=== PATIENT | male | born 1940 | race Caucasian/White ===

== ENCOUNTER 2016-07-21 11:59 | Inpatient (IN) ==
[2016-07-21 12:35] LABS: MANUAL DIFF NEEDED? NO
[2016-07-21 12:55] LABS: HEMATOCRIT 32.3 % (42.0-52.0); HEMOGLOBIN 10.7 g/dL (14.0-18.0); MCH 30.3 PG (27-31); MCHC 33.1 g/dL (33-37); MCV 91.5 FL (81-99); PLT 203 X1000 (130-400); RBC 3.53 XMIL (4.7-6.1)
[2016-07-21 12:56] LABS: BASO% 0.2 % (0.0-0.8); EOS# 0.36 X1000 (0.0-0.7); EOS% 3.5 % (0.0-10.0); IMM GRAN# 0.05 X1000 (0.0-0.04); IMM GRAN% 0.5 % (0.0-0.5); LYMPH# 1.94 X1000 (1.2-3.4); LYMPH% 18.8 % (20.5-51.1); MONO# 1.11 X1000 (0.11-0.59); MONO% 10.8 % (1.7-9.3); MPV 11.7 FL (7.4-10.4); NEUT% 66.2 % (42.2-75.2)
--- NOTE | 2016-07-21 13:07 | Diag Imaging Result Document ---
PROCEDURE NAME: CHEST-2 VIEWS - 07/21/2016 CHEST, 2 VIEWS: FINDINGS: Compared with 07/13/2014 and 05/26/2014. Heart size is normal. There is appearance of symmetrical mild pleural thickening at the bilateral lateral bases. However, the symmetry suggests that this is artifactual related to soft tissue overlap. Otherwise, lungs appear clear. There is no other pleural effusion or pneumothorax identified. There is mild thoracic spondylosis noted. IMPRESSION: Apparent symmetrical mild artifacts from soft tissue overlap at bilateral lateral bases. Otherwise, no evidence of acute disease. No pneumonia. [facility]
--- NOTE | 2016-07-21 13:09 | ED EKG INTERP ---
This chart was entered by Reema Pastor Scribmeghann, acting as scribe for Romeo Haile MD. EKG Interpretation - EKG Time of EKG reading by physician:: 12:15 EKG Read and Signed by:: Romeo Haile EKG Interpretation (*Must complete 3 of following elements*): Abnormal Rate: 58 Rhythm: sinus bradycardia with marked sinus arrhythmia Comments: ST & T wave abnormality, consider lateral ischemia This chart was documented by the indicated scribe, (Reema Pastor, Lit[place]) and accurately reflects the services I performed and decisions made by me, Romeo Haile MD, as attested by the provider's signature.
[2016-07-21 13:14] LABS: AGAP 13; ALKALINE PHOSPHATASE 28 U/L (32-122); BUN 56 mg/dL (8-22); CALCIUM 9.3 mg/dL (8.8-10.2); CHLORIDE 95 mmol/L (98-107); COSMO 285; GOT 28 U/L (10-34); GPT 18 U/L (10-44); POTASSIUM 3.8 mmol/L (3.5-5.1); SODIUM 134 mmol/L (136-145); TCO2 26 mmol/L (25-35); TOTAL PROTEIN 6.6 g/dL (6.3-8.3)
--- NOTE | 2016-07-21 13:37 | EKG Report ---
Test Performed on : 07/21/2016 12:15:18 PM Test Reason : cough Blood Pressure : / mmHG Vent. Rate : 058 BPM Atrial Rate : 058 BPM P-R Int : 174 ms QRS Dur : 106 ms QT Int : 418 ms P-R-T Axes : 048 059 218 degrees QTc Int : 410 ms Sinus bradycardia. with marked sinus arrhythmia. ST \T\ T wave abnormality, consider lateral ischemia Abnormal ECG When compared with ECG of 14-JUL-2014 18:47, ST no longer elevated in Inferior leads T wave inversion no longer evident in Inferior leads T wave inversion more evident in Lateral leads Unconfirmed Result
--- NOTE | 2016-07-21 14:45 | PROVIDER DOCUMENTATION ---
This chart was entered by Reema Pastor Scribe, acting as scribe for Romeo Haile MD. HPI-General Adult - General Chief Complaint: Weakness Stated Complaint: CONGESTION Time Seen by Provider: 07/21/16 13:09 Source: patient, family Allergies/Adverse Reactions: Patient Allergies Allergy/AdvReac Type Severity Reaction Status Date / Time No Known Allergies Allergy Verified 07/13/14 11:16 Home Medications: Home Medication List Medication Instructions Recorded Confirmed Last Taken Type Ondansetron [Zofran] 4 mg PO Q6H PRN PRN #20 tablet 06/29/14 07/14/14 Unknown Rx Metformin [Glucophage] 1,000 mg PO BID CC 07/13/14 07/14/14 Unknown History Aspirin [Aspirin EC] 81 mg PO DAILY 07/25/14 07/25/14 07/25/14 07:00 History Carvedilol [Coreg] 1 tab PO BID #0 07/25/14 07/14/14 Unknown Rx Docusate Sodium [Colace] 100 mg PO BID 07/25/14 07/25/14 07/25/14 07:00 History Donepezil [Aricept] 5 mg PO HS #0 tablet 07/25/14 Unknown Rx Gabapentin 300 mg PO TID #0 07/25/14 07/14/14 Unknown Rx Hydrochlorothiazide 25 mg PO DAILY #0 07/25/14 07/14/14 Unknown Rx Multivitamin [Flintstones] 1 each PO DAILY 07/25/14 07/25/14 07/25/14 07:00 History Pravastatin Sodium 20 mg PO DAILY #0 07/25/14 07/14/14 Unknown Rx Sertraline HCl 50 mg PO DAILY #0 tablet 07/25/14 Unknown Rx Terazosin [Hytrin] 5 mg PO QHS 07/25/14 07/25/14 07/24/14 19:00 History Trazodone [Desyrel] 25 mg PO HS PRN PRN #0 tablet 07/25/14 Unknown Rx - History of Present Illness -Gen Adult Nature of Presenting Problems: 76 year old male presents to the ER from urgent care clinic for O2 SAT of 90%. Pt states he has had a cold for the last two days. SOB, cough and congestion. Pt also experiencing edema in bilateral lower extremities. Onset/Duration: reports: 2 days ago Timing: reports: still present Associated Symptoms: reports: cough, sinus congestion/drainage, weakness Review of Systems - Adult - REVIEW OF SYSTEMS - ADULT Constitutional: denies: chills, fever Eyes: reports: no symptoms reported Ears, Nose, Mouth & Throat: reports: ear pain, sinus problem Cardiovascular: reports: no symptoms reported Respiratory: reports: cough, shortness of breath Gastrointestinal: reports: no symptoms reported Genitourinary: reports: no symptoms reported Musculoskeletal: reports: no symptoms reported Integumentary: reports: no symptoms reported Neurological: reports: no symptoms reported Psychiatric: reports: no symptoms reported Endocrine: reports: no symptoms reported Hematologic/Lymphatic: reports: no symptoms reported Allergic/Immunologic: reports: no symptoms reported All Other Systems: Reviewed and Negative Past History - Adult - PAST MEDICAL HISTORY-ADULT Review of Records: reports: Old Records Reviewed, Nursing Assessment Review, Medications Reviewed Major Childhood Illnesses: reports: denies history Cardiovascular: reports: HTN, hyperlipidemia Respiratory: reports: denies history Gastrointestinal: reports: denies history Obstetrical/Gynecological: reports: denies history Genitourinary: reports: cancer (prostate) Musculoskeletal: reports: denies history Neurological: reports: denies history Psychiatric: reports: other (dementia) Endocrine/Immune: reports: Diabetes Other Conditions: reports: denies history - PRIOR SURGERIES/PROCEDURES Surgical/Procedure History: reports: cardiac stent, hernia repair - IMMUNIZATION STATUS Childhood Immunizations: See Nurse Assessment Flu Vaccine: See Nurse Assessment - FAMILY HISTORY Family History: reviewed, not pertinent Physical Exam-General - CONSTITUTIONAL General Appearance: alert, no apparent distress - EYES Eyes: PERRL/EOMI, pink conjunctivae - HEAD, EARS, NOSE, MOUTH & THROAT HENMT: pharyngeal erythema, tonsillar exudate - NECK Neck: non-tender, supple - RESPIRATORY Respiratory: no respiratory distress, decreased breath sounds - CARDIOVASCULAR Cardiovascular: normal peripheral pulses, regular rate, rhythm - MUSCULOSKELETAL Back Exam: no CVA tenderness, no vertebral tenderness Extremity: non-tender, normal inspection - SKIN Integumentary: normal color, swelling (bilateral lower extremities) - NEUROLOGIC Neurologic: grossly normal, no motor/sensory deficits - PSYCHIATRIC Psych/Mental Status: normal mood/affect, normal thought content, normal thought process, oriented x 3 Progress - PLAN OF CARE/RESULTS Progress/Plan/Lab Results: Vital Signs - 8 hr 07/21/16 12:09 Temperature 97.7 F Pulse Rate 84 Respiratory Rate 20 Blood Pressure 88/45 O2 Sat by Pulse Oximetry 94 L Laboratory Results - last 24 hr 07/21/16 07/21/16 07/21/16 12:25 12:25 12:25 WBC 10.31 RBC 3.53 L Hgb 10.7 L Hct 32.3 L MCV 91.5 MCH 30.3 MCHC 33.1 RDW Std Deviation 12.3 Plt Count 203 MPV 11.7 H Immature Gran % (Auto) 0.5 Neut % (Auto) 66.2 Lymph % (Auto) 18.8 L Richardson % (Auto) 10.8 H Eos % (Auto) 3.5 Baso % (Auto) 0.2 Immature Gran # (Auto) 0.05 H Neut # (Auto) 6.83 H Lymph # (Auto) 1.94 Richardson # (Auto) 1.11 H Eos # (Auto) 0.36 Baso # (Auto) 0.02 Sodium 134 L Potassium 3.8 Chloride 95 L Carbon Dioxide 26 Anion Gap 13 BUN 56 H Creatinine 2.4 H BUN/Creatinine Ratio 23 Glucose 127 H Calculated Osmolality 285 Calcium 9.3 Total Bilirubin 0.50 AST 28 ALT 18 Alkaline Phosphatase 28 L Total Protein 6.6 Albumin 4.0 Globulin 3.0 Albumin/Globulin Ratio 2.0 Plasma Lactate 2.2 Orders Category Date Time Status Saline Loc NOW Care 07/21/16 12:15 Completed CHEST-2 VIEWS [RAD] Stat Exams 07/21/16 12:15 Draft BLOOD CULTURE [BLDCUL] Stat Lab 07/21/16 12:15 Ordered CBC WITH DIFF [HEME] Stat Lab 07/21/16 12:25 Completed COMPREHENSIVE METABOLIC PANEL [CHEM] Stat Lab 07/21/16 12:25 Completed LACTATE, PLASMA [CHEM] Stat Lab 07/21/16 12:25 Completed Pulse Oximetry Stat Oth 07/21/16 12:15 Active Result Diagrams: 07/21/16 12:25 07/21/16 12:25 - XRAY 1 XRAY Study: Chest Impression: Normal XRAY Interpretation: no evidence of acute disease, no pneumonia - CONSULTS/PCP/HOSPITALIST Notification #1 *Consult/PCP/Hospitalist*: Spoke with Dr. Gan Time Discussed: 14:05 Reason/Comments: Agreed to Admission Consult Disposition: Admit Departure - Departure Time of Disposition Decision: 14:44 DIAGNOSIS: Dehydration, moderate Disposition: ADMITTED INPATIENT 09 Certified Medical Emergency: Emergent Condition: Stable Referrals and Follow-Ups: David Bill Jr, MD [Primary Care Provider] - This chart was documented by the indicated scribe, (Reema Pastor, Scribe) and accurately reflects the services I performed and decisions made by me, Romeo Haile MD, as attested by the provider's signature.
[2016-07-21] MEDS ORDERED: NS 1,000 ML IV ONE (14:46)
[2016-07-21] MEDS ORDERED: DESYREL PO PRN (16:54)
[2016-07-21] MEDS ORDERED: DUONEB (A & A) INH PRN (16:55)
[2016-07-21] MEDS ORDERED: ZOFRAN IV PRN (16:55)
[2016-07-21] MEDS ORDERED: ROBITUSSIN-AC PO PRN (16:57)
--- NOTE | 2016-07-21 17:32 | HISTORY AND PHYSICAL ---
PRIMARY CARE PHYSICIAN: Dr. David Bill. CHIEF COMPLAINT: Cough. HISTORY OF PRESENT ILLNESS: This is a 76-year-old male with a history of diabetes mellitus, CAD, status post stents, hypertension, who presented to the emergency room complaining of about a week of sinus drainage, sore throat and cough. But he states over the last 3 days he has had a persistent cough that increases greatly when he leans back due to sinus drainage. He has had no appetite. He has continued to take his hydrochlorothiazide as well as other medications with very little p.o. intake. He denies any chest pain or palpitations, PND, orthopnea. Chest x-ray revealed no acute disease, no pneumonia. In the emergency room he was given IV hydration and admitted for further evaluation and treatment. PAST MEDICAL HISTORY: 1. Coronary artery disease status post stents approximately 8 years ago. 2. Hypertension. 3. Diabetes mellitus. 4. Prostate cancer. 5. Hyperlipidemia. PAST SURGICAL HISTORY: Hernia repair. SOCIAL HISTORY: He has occasional social alcohol. He quit smoking in 1967. He denies illicit drug use. ALLERGIES: No known drug allergies. HOME MEDICATIONS: Flomax 0.4 daily, Claritin 10 as needed, Levemir 60 units at bedtime, Trilipix 135 daily, Coreg 25 b.i.d., Avapro 300 daily, Amaryl 4 b.i.d., Bumex 1 daily, Casodex 50 daily, Norvasc 5 daily, Humalog 50 units before meals, gabapentin 300 daily, Glucophage 1000 b.i.d, hydrochlorothiazide 25 daily, pravastatin 20 daily, trazodone 25 at bedtime, Zoloft 50 daily. REVIEW OF SYSTEMS: A 14 point review of systems discussed with patient with pertinent positives stated in HPI. He denies chest pain, palpitations, syncope, dizziness, productive cough, PND orthopnea, fever, chills, recent weight loss, weight gain, nausea, vomiting, diarrhea, constipation, black or bloody vomitus, black or bloody stools, hematuria, dysuria. PHYSICAL EXAMINATION: GENERAL: This is a 76-year-old male, who is sitting up in the bed, in no distress. VITAL SIGNS: Blood pressure is 133/55, with heart rate of 58, respirations are 20, temperature is 97.4 degrees oral, with oxygen saturations of 98%-99% on 2 L nasal cannula. HEENT: Head is normocephalic, atraumatic. Pupils equal, round, react to light. EOMs are intact. Sclerae anicteric. Mucous membranes are dry. NECK: Supple with trachea midline. CARDIOVASCULAR: Regular rate and rhythm. S1, S2 appreciated. PULMONARY: Breath sounds with wheezes scattered throughout, rhonchi that do somewhat clear to cough. Chest rises and falls symmetrically. No increased work of breathing noted. BACK: No CVAT. No spine tenderness. GASTROINTESTINAL: Soft, nontender, nondistended with bowel sounds in all 4 quadrants. MUSCULOSKELETAL: Good range of motion of joints. NEUROLOGIC: He is alert and oriented x3. EXTREMITIES: No clubbing or cyanosis. He does have 2 to 3+ edema, pitting edema to just below the knees down. He states this is chronic. Pulses are palpable x4. Calves are nontender. DIAGNOSTICS: WBC is 10.31, with hemoglobin 10.7, hematocrit 32.3, and platelets of 203,000. Sodium is 134, potassium 3.8, BUN 56, creatinine 2.4, with a glucose of 127. Chest x-ray reveals no pneumonia or no acute processes. ASSESSMENT AND PLAN: 1. Acute kidney injury. This is most likely secondary to dehydration and continued medications. We will hold any renal toxic medications, hold diuretics of course, give gentle hydration and trend labs in the morning. 2. Dehydration. This patient states he has had very little p.o. intake in the last 2-3 days due to feeling bad, but he has continued to take hydrochlorothiazide and Bumex. We will rehydrate and follow. 3. Cough. The patient feels this is from sinus drainage as when he lies down he has increased drainage and increased cough, although he is wheezing. Blood cultures have been obtained. Due to his renal status we will give Rocephin 1 g daily once cultures return if needed. Antibiotics can be dosed appropriately to the results. 4. Hypertension. We will repeat his medications and continue as appropriate. 5. Diabetes type 2. We will hold his oral anti diabetics as well as right now his scheduled insulins as he has not been eating. We will give sliding scale per pattern blood glucose and we can reassess in the morning as his appetite increases and he does increase his p.o. intake. 6. History of prostate cancer. Aware. 7. Coronary artery disease. He states he is status post PCI about 8 years ago. He has had no cardiology followup since his visit just after stents were placed. He denies any chest pain or palpitations. He will be placed on telemetry. 8. DVT prophylaxis. We will hold off on Lovenox due to his renal function. We will use SCDs and will re-evaluate in the morning. 9. Gastrointestinal prophylaxis. We will use Protonix. Further treatments pending hospital course. Dictated by MG Nguyen for Ta Brady MD cc: MG Nguyen MD
[2016-07-21] MEDS: ROCEPHIN 1 GM/NS 1 GM/50 ML IVPB IV SCH (17:37)
[2016-07-21] MEDS: SOLU-MEDROL IV SCH (17:37)
[2016-07-21] MEDS: DUONEB (A & A) INH SCH ×2 (19:28→23:02)
[2016-07-21] MEDS: COLACE PO SCH (21:23)
[2016-07-21] MEDS: COREG PO SCH (21:24)
[2016-07-21] MEDS: HUMALOG DOSE (PARKWAY) SUBQ SCH (21:56)
[2016-07-22] MEDS: SOLU-MEDROL IV SCH ×3 (01:22→18:42)
[2016-07-22] MEDS: DUONEB (A & A) INH SCH ×5 (03:14→19:33)
[2016-07-22 05:50] LABS: HEMATOCRIT 30.8 % (42.0-52.0); HEMOGLOBIN 10.3 g/dL (14.0-18.0); MCH 30.5 PG (27-31); MCHC 33.4 g/dL (33-37); MCV 91.1 FL (81-99); RBC 3.38 XMIL (4.7-6.1)
[2016-07-22 05:51] LABS: MPV 11.5 FL (7.4-10.4)
[2016-07-22 06:08] LABS: AGAP 14; ALBUMIN 3.8 g/dL (3.5-5.0); ALKALINE PHOSPHATASE 31 U/L (32-122); BUN 51 mg/dL (8-22); CALCIUM 8.9 mg/dL (8.8-10.2); CHLORIDE 93 mmol/L (98-107); COSMO 297; GOT 18 U/L (10-34); GPT 15 U/L (10-44); POTASSIUM 4.2 mmol/L (3.5-5.1); SODIUM 132 mmol/L (136-145); TCO2 25 mmol/L (25-35); TOTAL PROTEIN 6.2 g/dL (6.3-8.3)
[2016-07-22] MEDS: HUMALOG DOSE (PARKWAY) SUBQ SCH ×7 (06:10→20:56)
[2016-07-22] MEDS ORDERED: IMODIUM PO PRN (06:49)
[2016-07-22] MEDS ORDERED: CLARITIN PO PRN (06:49)
[2016-07-22] MEDS ORDERED: LANTUS INSULIN (PARKWAY) SUBQ ONE ×2 (06:50→08:30)
[2016-07-22] MEDS ORDERED: HUMALOG (PARKWAY) SUBQ SCH (07:00)
[2016-07-22] MEDS ORDERED: HUMALOG DOSE (PARKWAY) SUBQ SCH (08:17)
--- NOTE | 2016-07-22 08:32 | PROGRESS NOTE ---
DATE: 07/22/2016 SUBJECTIVE: The patient notes he is feeling a little bit better. His blood sugars are elevated, but other than that states he is feeling back and closer to his baseline. PHYSICAL EXAMINATION: Vital Signs: Temperature 97, pulse 49-68, respiratory rate 18, blood pressure 125/46. General: Patient well developed, well nourished. He is currently in no real respiratory distress. He is awake, alert. Neck: Supple. Cardiovascular: Regular rate. Chest: Relatively clear. Abdomen: Soft. Extremities: Moves all extremities. Neurologic: No focal changes. Skin: Warm and dry. No rashes. LABS: Serum creatinine 2.0. Glucose 449, potassium 132. Hemoglobin and hematocrit 10 and 30. ASSESSMENT: 1. Anemia of chronic disease, stable. 2. Acute renal failure. His last creatinine on record is 0.5 from 2014. Creatinine is slowly improving. Will continue IV fluids. 3. Diabetes with hyperglycemia. We will restart his home medications. PLAN: We will check a renal ultrasound today. We will continue to hold his Bumex and hydrochlorothiazide. Will continue IV fluids. Recheck his labs in the a.m. Hopefully home in 1- 2 days. cc: aT Brady MD
[2016-07-22] MEDS ORDERED: PRAVACHOL PO SCH (09:00)
[2016-07-22] MEDS: AMARYL PO SCH ×2 (09:21→20:52)
[2016-07-22] MEDS: COREG PO SCH ×2 (09:21→20:53)
[2016-07-22] MEDS: GLUCOPHAGE PO SCH ×2 (09:21→18:43)
[2016-07-22] MEDS: COLACE PO SCH ×2 (09:21→20:53)
[2016-07-22] MEDS: FLOMAX PO SCH (09:21)
[2016-07-22] MEDS: TRICOR PO SCH (09:22)
[2016-07-22] MEDS: ZOLOFT PO SCH (09:22)
[2016-07-22] MEDS: TYLENOL PO SCH ×3 (09:22→20:52)
[2016-07-22] MEDS: NEURONTIN PO SCH (09:22)
[2016-07-22] MEDS: NORVASC PO SCH (09:22)
[2016-07-22] MEDS: AVAPRO PO SCH (09:23)
--- NOTE | 2016-07-22 10:27 | Diag Imaging Result Document ---
PROCEDURE NAME: US RENAL 2 (RETROPER) COMPLETE - 07/22/2016 RENAL ULTRASOUND: FINDINGS: The study is somewhat suboptimal due to the patient's body habitus, but there is no evidence of hydronephrosis or mass in the kidneys. The right kidney is 9.8 x 5.5 x 5.7 cm. The left is 10 x 5.1 x 5.2 cm. The kidneys are normal in echogenicity. The urinary bladder is not distended. IMPRESSION: No evidence of obstructive uropathy or other acute renal abnormality.
[2016-07-22] MEDS: ROCEPHIN 1 GM/NS 1 GM/50 ML IVPB IV SCH (18:42)
[2016-07-22] MEDS: NS 1,000 ML IV SCH ×2 (18:52→21:25)
[2016-07-22] MEDS: CASODEX PO SCH (18:52)
[2016-07-22] MEDS: FLINTSTONES COMPLETE PO SCH (18:52)
[2016-07-22] MEDS ORDERED: LEVEMIR INSULIN *HA SUBQ SCH (21:00)
[2016-07-23] MEDS: SOLU-MEDROL IV SCH ×2 (00:53→08:41)
[2016-07-23] MEDS: TYLENOL PO SCH ×3 (01:05→13:50)
[2016-07-23] MEDS: DUONEB (A & A) INH SCH ×4 (01:18→14:32)
[2016-07-23 06:02] LABS: HEMATOCRIT 29.3 % (42.0-52.0); HEMOGLOBIN 9.5 g/dL (14.0-18.0); MCHC 32.4 g/dL (33-37); MCV 92.4 FL (81-99); MPV 11.7 FL (7.4-10.4); RBC 3.17 XMIL (4.7-6.1)
[2016-07-23] MEDS: HUMALOG DOSE (PARKWAY) SUBQ SCH ×5 (06:46→13:16)
[2016-07-23 07:00] LABS: ALBUMIN 3.7 g/dL (3.5-5.0); CALCIUM 8.9 mg/dL (8.8-10.2); POTASSIUM 4.5 mmol/L (3.5-5.1); TOTAL BILIRUBIN 0.2 mg/dL (0.20-1.00); TOTAL PROTEIN 5.7 g/dL (6.3-8.3)
[2016-07-23] MEDS ORDERED: AMARYL PO SCH (08:00)
[2016-07-23] MEDS: ZOLOFT PO SCH (08:42)
[2016-07-23] MEDS: GLUCOPHAGE PO SCH (08:42)
[2016-07-23] MEDS: CASODEX PO SCH (08:43)
[2016-07-23] MEDS: TRICOR PO SCH (08:43)
[2016-07-23] MEDS: NORVASC PO SCH (08:43)
[2016-07-23] MEDS: NEURONTIN PO SCH (08:44)
[2016-07-23] MEDS: COREG PO SCH (08:44)
[2016-07-23] MEDS: FLOMAX PO SCH (08:44)
[2016-07-23] MEDS: FLINTSTONES COMPLETE PO SCH (08:44)
[2016-07-23] MEDS: COLACE PO SCH (08:46)
[2016-07-23] MEDS: AVAPRO PO SCH (08:46)
[2016-07-23] MEDS: NS 1,000 ML IV SCH (13:17)
[2016-07-23 13:49] LABS: URINE SOURCE VOIDED
[2016-07-23 14:05] LABS: BILIRUBIN URINE NEGATIVE (NEGATIVE); BLOOD URINE NEGATIVE (NEGATIVE); CLARITY CLEAR (CLEAR); COLOR YELLOW; LEUKOCYTES URINE NEGATIVE (NEGATIVE); NITRITE URINE NEGATIVE (NEGATIVE); PROTEIN URINE TRACE mg/dL (NEGATIVE); URINE MICROSCOPIC NEEDED? YES; UROBILINOGEN URINE NORMAL
[2016-07-23 15:16] LABS: URINE EPITHELIAL CELLS <10 /HPF (<10); URINE RBC <10 /HPF (<10); URINE WBC <10 /HPF (<10)
[2016-07-23 15:27] VITALS: BP 121/52
[2016-07-23] MEDS ORDERED: SOLU-MEDROL IV SCH (17:00)
[2016-07-23] MEDS ORDERED: PRAVACHOL PO SCH (21:00)
--- NOTE | 2016-07-24 13:00 | DISCHARGE SUMMARY ---
ADMISSION DATE: 07/21/2016 DISCHARGE DATE: 07/23/2016 DIAGNOSES: 1. Acute kidney injury most likely secondary to dehydration and continued use of medications. This is improving. 2. Dehydration resolved. 3. Anemia of chronic disease. Stable. 4. Diabetes mellitus type 2 with hyperglycemia improving. 5. Coronary artery disease. Aware. 6. History of prostate cancer. DIAGNOSTICS: 07/21/2016: Chest x-ray revealed no pneumonia and no evidence of acute disease. 07/22/2016: Renal ultrasound revealed no evidence of obstructive uropathy or other acute renal abnormality. MICROBIOLOGY: Blood cultures x2 revealed no growth after 48 hours. HOSPITAL COURSE: Mr. Delaney presented to the emergency room complaining of about a week of persistent sinus drainage,. Sore throat and cough over the 3 days prior to coming to the emergency room. He stated that secretions and drainage had increased. Any time he would lie down, he would have a persistent cough. He had no appetite due to this and he states he had very little oral intake. Despite this, he continued to take his home medications including Bumex, Glucophage, hydrochlorothiazide and Avapro. He was found to have a BUN of 56 and a creatinine of 2.4. This has decreased to a creatinine down to 2 on discharge. We did trend CBCs. His hemoglobin and hematocrit stayed between 9.5-10.7 to 29.3 and 32.3 respectively. He was placed on pattern blood glucose with sliding scale insulin. We held his Bumex, hydrochlorothiazide, Amaryl and Glucophage during the hospitalization. We did institute steroids to taper along with DuoNeb treatments of which he did tolerate well. He clinically improved. PHYSICAL EXAMINATION: Cardiovascular: Regular rate and rhythm. S1, S2 appreciated. Pulmonary: Breath sounds are clear. No increased work of breathing noted. Gastrointestinal: Abdomen is soft, nontender, nondistended. Bowel sounds in all 4 quadrants. Extremities: No clubbing, cyanosis, or edema. Calves nontender. Pulses are palpable x4. DISCHARGE VITAL SIGNS: Blood pressure is 121/52 with a heart rate of respirations are 16, temperature 96.8 degrees oral with room air saturations of 96-98%. DISCHARGE ACTIVITY: As tolerated. DISCHARGE MEDICATIONS: 1. Flomax 0.4 daily, Claritin 10 daily. Imodium 2 mg p.o. p.r.n., Levemir 60 units subcutaneous at bedtime, Trilipix 135 daily, Coreg 25 b.i.d., Avapro 300 daily, Casodex 50 daily, Norvasc 5 daily, Humalog 50 units subcutaneous before meals. 2. Colace 100 mg b.i.d., gabapentin 300 daily, pravastatin 20 daily. Flintstones vitamin daily, trazodone 25 at bedtime p.r.n.. Zoloft 50 daily. 3. Prednisone taper 40 mg twice a day for 3 days, 40 mg daily for 3 days, 20 mg daily for 3 days, 10 mg daily for 3 days, then discontinue. FOLLOWUP: Dr. David Bill, his primary care physician on August 01 at 2:30. At this time, it will be discussed restarting Glucophage, hydrochlorothiazide, Bumex and Amaryl. He will also need a BMP. An order for BMP to be drawn on July 25 with results to be called to Dr. Bill regarding his BUN and creatinine was faxed to [facility] as well as sent to the [facility] with his discharge papers. DISCHARGE INSTRUCTIONS: He was instructed to call Dr. Bill to be seen sooner for any recurring symptoms or questions or concerns that he may have. Dictated by MG Nguyen for Ta Brady MD cc: MG Nguyen MD Roger H. Moss Jr, MD
== END 2016-07-23 16:59 | disposition home or self-care (01) ==
LOC: P.ED 11:59 → P.MEDSURG 11:59 → OBSVTOIN 15:26
PROVIDERS: ATTEND Family Medicine

== ENCOUNTER 2018-07-28 19:16 | Inpatient (IN) ==
--- NOTE | 2018-07-28 20:04 | Diag Imaging Result Doc PS360 ---
EXAM: CHEST-2 VIEWS HISTORY: cough congestion fever TECHNIQUE: Chest two views COMPARISON: 12/05/2017 FINDINGS: The lungs are well expanded. The heart is not enlarged. The vessels are not distended. There are no infiltrates. No pleural effusions. IMPRESSION: No pneumonia Electronically signed by Carlos Alberto Walker 07/28/2018 8:02 PM
[2018-07-28 20:11] LABS: INFLUENZA A NEGATIVE (NEGATIVE); INFLUENZA B NEGATIVE (NEGATIVE)
[2018-07-28 20:55] LABS: BASO# 0.02 X1000 (0.0-0.2); BASO% 0.2 % (0.0-0.8); EOS# 0.22 X1000 (0.0-0.7); EOS% 2.2 % (0.0-10.0); HEMATOCRIT 38.4 % (42.0-52.0); HEMOGLOBIN 13.1 g/dL (14.0-18.0); IMM GRAN# 0.06 X1000 (0.0-0.04); IMM GRAN% 0.6 % (0.0-0.5); LYMPH# 1.15 X1000 (1.2-3.4); LYMPH% 11.7 % (20.5-51.1); MCH 31.2 PG (27-31); MCHC 34.1 g/dL (33-37); MCV 91.4 FL (81-99); MONO# 0.94 X1000 (0.11-0.59); MONO% 9.6 % (1.7-9.3); NEUT# 7.44 X1000 (1.4-6.5); NEUT% 75.7 % (42.2-75.2); PLT 191 X1000 (130-400); RDW 12.1 % (11.5-14.5); WBC 9.83 X1000 (4.8-10.8)
[2018-07-28 22:15] LABS: INR 0.96; PROTIME 13.3 Seconds (11.0-16.0)
[2018-07-28 22:16] LABS: PTT 28.7 Seconds (22.3-41.8)
[2018-07-28 22:22] LABS: ALBUMIN 4.1 g/dL (3.5-5.0); CALCIUM 8.7 mg/dL (8.8-10.2); CREATININE 1.5 mg/dL (0.7-1.2); POTASSIUM 4.2 mmol/L (3.5-5.1); TOTAL BILIRUBIN 0.5 mg/dL (0.20-1.00); TOTAL PROTEIN 6.7 g/dL (6.3-8.3)
[2018-07-28] MEDS ORDERED: NS 1,000 ML IV ONE (22:37)
[2018-07-28 23:11] LABS: BILIRUBIN URINE NEGATIVE (NEGATIVE); BLOOD URINE NEGATIVE (NEGATIVE); CLARITY CLEAR (CLEAR); COLOR YELLOW; KETONE URINE NEGATIVE (NEGATIVE); LEUKOCYTES URINE NEGATIVE (NEGATIVE); NITRITE URINE NEGATIVE (NEGATIVE); PROTEIN URINE NEGATIVE (NEGATIVE); SP GRAVITY URINE 1.015; UROBILINOGEN URINE NORMAL
[2018-07-28 23:15] LABS: URINE BACTERIA 2+ /HFP; URINE EPITHELIAL CELLS <10 /HPF (<10); URINE WBC NS /HPF (<10)
[2018-07-28 23:16] LABS: URINE SOURCE CATH
[2018-07-28] MEDS ORDERED: ZOSYN 3.375 GM in NS 50 ML IV ONE (23:30)
[2018-07-28] MEDS ORDERED: VANCOMYCIN 1 GM/NS 1 GM/250 ML IVPB IV ONE (23:30)
--- NOTE | 2018-07-29 00:12 | PROVIDER DOCUMENTATION ---
This chart was entered by Ruma Miranda Scribe, acting as scribe for Theo Monahan MD. HPI-General Adult - General Chief Complaint: High Blood Sugar Stated Complaint: HYPERGLYCEMIA Time Seen by Provider: 07/28/18 21:09 Source: patient, family Unable to obtain history due to:: other (poor historian-information from brother at bedside) Allergies/Adverse Reactions: Patient Allergies Allergy/AdvReac Type Severity Reaction Status Date / Time No Known Allergies Allergy Unverified 07/28/18 22:54 Home Medications: Home Medication List Medication Instructions Recorded Confirmed Last Taken Type Multivitamin [Flintstones] 1 each PO DAILY 07/25/14 07/28/18 12/04/17 09:00 History Amlodipine Besylate [Norvasc] 5 mg PO DAILY 07/21/16 07/28/18 12/04/17 09:00 History Bicalutamide [Casodex] 50 mg PO DAILY 07/21/16 07/28/18 12/04/17 09:00 History Cyanocobalamin (Vitamin B-12) 1,000 mcg IJ DIRECTED 02/26/17 07/28/18 Unknown History [Cyanocobalamin Injection] Docusate Sodium [Colace] 100 mg PO BID PRN PRN 02/26/17 07/28/18 Unknown History Fenofibric Acid [Fibricor] 135 mg PO DAILY 02/26/17 07/28/18 12/04/17 09:00 History Gabapentin 300 mg PO DAILY 02/26/17 07/28/18 Unknown History Insulin Detemir [Levemir Flextouch] 60 unit SQ QHS 02/26/17 07/28/18 Unknown History Irbesartan 300 mg PO DAILY 02/26/17 07/28/18 Unknown History PRAVAstatin [Pravachol] 20 mg PO DAILY 02/26/17 07/28/18 Unknown History Sertraline HCl 50 mg PO DAILY 02/26/17 07/28/18 Unknown History Sitagliptin [Januvia] 50 mg PO DAILY 02/26/17 07/28/18 12/04/17 09:00 History Tamsulosin [Flomax] 0.4 mg PO DAILY 02/26/17 07/28/18 Unknown History Insulin Aspart [Novolog Flexpen] 25 - 50 unit SQ DIRECTED #0 12/06/17 0 07/28/18 Unknown Rx Insulin Detemir [Levemir] 60 unit SUBQ Q insuln.pen 12/06/17 07/28/18 Unknown Rx - History of Present Illness -Gen Adult Nature of Presenting Problems: pt is a 78 yr old male presenting via EMS with complaint of weakness, cough, con gestion, fever worsening x 1 week, care facility reports pt unable to walk this evening due to weakness. pt also hyperglycemic. pt poor historian Onset/Duration: reports: 1 week ago Timing: reports: getting worse Context/Activities at Onset: reports: light activity Modifying Factors: improves with: nothing Associated Symptoms: reports: cough, fever/chills, sinus congestion/drainage, weakness, trouble walking Similar Symptoms Previously?: No Recently seen or treated by another doctor?: No - Diabetes Related Context Context: reports: high blood sugar Review of Systems - Adult - REVIEW OF SYSTEMS - ADULT ROS:: limited per condition (information from brother, pt denies complaints) Constitutional: reports: fever, fatique Eyes: reports: no symptoms reported Ears, Nose, Mouth & Throat: reports: no symptoms reported Cardiovascular: reports: no symptoms reported Respiratory: reports: cough Gastrointestinal: denies: diarrhea, vomiting Genitourinary: reports: no symptoms reported Musculoskeletal: reports: no symptoms reported Integumentary: reports: no symptoms reported Neurological: reports: loss of balance Psychiatric: reports: no symptoms reported Endocrine: reports: no symptoms reported Hematologic/Lymphatic: reports: no symptoms reported Allergic/Immunologic: reports: no symptoms reported All Other Systems: Reviewed and Negative Past History - Adult - PAST MEDICAL HISTORY-ADULT Review of Records: reports: Old Records Reviewed, Nursing Assessment Review, Medications Reviewed, Social history reviewed & non-contributory. Major Childhood Illnesses: reports: denies history Cardiovascular: reports: HTN, hyperlipidemia, [place] Respiratory: reports: denies history Gastrointestinal: reports: denies history Obstetrical/Gynecological: reports: denies history Genitourinary: reports: denies history Musculoskeletal: reports: denies history Neurological: reports: denies history Psychiatric: reports: denies history Endocrine/Immune: reports: Diabetes Other Conditions: reports: denies history - PRIOR SURGERIES/PROCEDURES Surgical/Procedure History: reports: reviewed, not pertinent - IMMUNIZATION STATUS Childhood Immunizations: See Nurse Assessment Flu Vaccine: See Nurse Assessment - FAMILY HISTORY Family History: reviewed, not pertinent - SOCIAL HISTORY Smoking: denies Substance Use: denies Living Situation: care facility Physical Exam-General - PHYSICAL EXAM-ADULT Initial Vital Signs Reviewed: Yes - CONSTITUTIONAL General Appearance: alert, no apparent distress - EYES Eyes: PERRL/EOMI - HEAD, EARS, NOSE, MOUTH & THROAT HENMT: normocephalic/atraumatic, moist mucous membranes, normal ENT inspection - NECK Neck: non-tender, full range of motion, supple, normal inspection - RESPIRATORY Respiratory: chest non-tender, lungs clear, normal breath sounds - CARDIOVASCULAR Cardiovascular: normal peripheral pulses, regular rate, rhythm, no edema - GASTROINTESTINAL (ABDOMEN) Abdominal Exam: normal bowel sounds, non tender, soft - LYMPHATIC Lymphatic: no adenopathy - MUSCULOSKELETAL Back Exam: normal inspection, no CVA tenderness, no vertebral tenderness Extremity: normal range of motion, non-tender, normal gait, normal inspection - SKIN Integumentary: normal color, normal turgor, warm/dry - NEUROLOGIC Neurologic: grossly normal, no motor/sensory deficits - PSYCHIATRIC Psych/Mental Status: other (confused) Progress - PLAN OF CARE/RESULTS Progress/Plan/Lab Results: Vital Signs - 8 hr 07/28/18 19:17 07/28/18 21:26 Temperature 100.1 F H 99.4 F Pulse Rate 83 79 Respiratory Rate 18 23 Blood Pressure 137/69 154/61 O2 Sat by Pulse Oximetry 96 95 Laboratory Results - last 24 hr 07/28/18 07/28/18 07/28/18 19:20 19:30 20:35 WBC 9.83 RBC 4.20 L Hgb 13.1 L Hct 38.4 L MCV 91.4 MCH 31.2 H MCHC 34.1 RDW Std Deviation 12.1 Plt Count 191 MPV 11.0 H Immature Gran % (Auto) 0.6 H Neut % (Auto) 75.7 H Lymph % (Auto) 11.7 L [place] % (Auto) 9.6 H Eos % (Auto) 2.2 Baso % (Auto) 0.2 Immature Gran # (Auto) 0.06 H Neut # (Auto) 7.44 H Lymph # (Auto) 1.15 L [place] # (Auto) 0.94 H Eos # (Auto) 0.22 Baso # (Auto) 0.02 POC Glucose 387 H D Influenza A (Rapid) NEGATIVE Influenza B (Rapid) NEGATIVE Orders Category Date Time Status Cardiac Monitoring DIRECTED Care 07/28/18 21:22 Active FSBS [Finger Stick Blood Sugar (ED)] DIRECTED Care 07/28/18 19:29 Active IV Insertion ORDERED Care 07/28/18 21:22 Active Notify MD of + Sepsis Screen NOW Care 07/28/18 21:22 Active Notify Physician As Ordered Care 07/28/18 21:22 Active CHEST-2 VIEWS [RAD] Stat Exams 07/28/18 19:26 Completed BLOOD CULTURE [BLDCUL] Stat Lab 07/28/18 21:29 Ordered CBC WITH DIFF [HEME] Stat Lab 07/28/18 20:35 Completed CK PROFILE [SP CHEM] Stat Lab 07/28/18 21:27 Ordered CMP [COMPREHENSIVE METABOLIC PANEL] [CHEM] Stat Lab 07/28/18 21:[address] Stat Lab 07/28/18 19:30 Completed LACTATE, PLASMA [CHEM] Stat Lab 07/28/18 21:29 Ordered PROTIME WITH INR [COAG] Stat Lab 07/28/18 21:27 Ordered PTT [COAG] Stat Lab 07/28/18 21:27 Ordered TROPONIN T Stat Lab 07/28/18 21:[address] W/POSS RFLX CULT [URINALYSIS] Stat Lab 07/28/18 21:22 Uncollected Oxygen Device Stat Oth 07/28/18 21:22 Active Unknown source of infection but given fever and elevated lactate will treat for sepsis, fluids and iv abx started, will admit Result Diagrams: 07/28/18 20:35 07/28/18 20:35 - XRAY 1 XRAY Study: Chest Impression: Normal Departure - Departure Date of Disposition Decision: 07/29/18 Time of Disposition Decision: 00:12 DIAGNOSIS: Fever of unknown origin, Weakness Disposition: ADMITTED INPATIENT 09 Certified Medical Emergency: Emergent Condition: Stable Referrals and Follow-Ups: Ta Brady MD [Primary Care Provider] - - Critical Care Note This patient required my direct & personal management of CC.: No Attestation - Physician/ ERLINDA Attestation Patient care was provided by Advanced Practice Provider:: No The physician spent face to face time with patient:: Yes Advanced Practice Provider documentation review:: Supervising physician onsite and consulted in the evaluation and care of this patient. The physician did have a face to face encounter with the patient. This chart was documented by the indicated scribe, (Ruma Miranda, [place]) and a ccurately reflects the services I performed and decisions made by me, Theo Monahan MD, as attested by the provider's signature.
[2018-07-29] MEDS ORDERED: TYLENOL PO PRN ×3 (00:14→08:22)
[2018-07-29] MEDS ORDERED: NS 1,000 ML IV ONE (00:14)
[2018-07-29] MEDS ORDERED: ZOFRAN IV PRN (00:14)
[2018-07-29] MEDS ORDERED: MORPHINE IV PRN (00:14)
[2018-07-29] MEDS ORDERED: HUMULIN R (PARKWAY) ONE (01:35)
[2018-07-29] MEDS ORDERED: HUMULIN R SUBQ ONE (01:35)
[2018-07-29] MEDS ORDERED: IMODIUM PO PRN (08:22)
[2018-07-29] MEDS ORDERED: TESSALON PO PRN (08:22)
[2018-07-29] MEDS ORDERED: BUMEX PO PRN (08:22)
[2018-07-29 09:09] LABS: HEMATOCRIT 33.6 % (42.0-52.0); HEMOGLOBIN 11.5 g/dL (14.0-18.0); MCH 31.7 PG (27-31); MCHC 34.2 g/dL (33-37); MCV 92.6 FL (81-99); MPV 10.1 FL (7.4-10.4); RBC 3.63 XMIL (4.7-6.1); RDW 12.1 % (11.5-14.5); WBC 6.64 X1000 (4.8-10.8)
[2018-07-29 09:28] LABS: ALBUMIN 3.3 g/dL (3.5-5.0); CALCIUM 7.8 mg/dL (8.8-10.2); CREATININE 1.2 mg/dL (0.7-1.2); MAGNESIUM 1.8 mg/dL (1.5-2.7); POTASSIUM 4.2 mmol/L (3.5-5.1); TOTAL BILIRUBIN 0.5 mg/dL (0.20-1.00)
[2018-07-29] MEDS: CASODEX PO SCH (10:15)
[2018-07-29] MEDS: LEVEMIR INSULIN *HA SUBQ SCH ×2 (10:15→21:43)
[2018-07-29] MEDS: AVAPRO PO SCH (10:15)
[2018-07-29] MEDS: PRAVACHOL PO SCH (10:16)
[2018-07-29] MEDS: ZOLOFT PO SCH (10:16)
[2018-07-29] MEDS: FLOMAX PO SCH (10:16)
[2018-07-29] MEDS: NEURONTIN PO SCH (10:16)
[2018-07-29] MEDS: TRICOR PO SCH (10:16)
[2018-07-29] MEDS: COLACE PO SCH ×2 (10:16→21:44)
[2018-07-29] MEDS: NORVASC PO SCH (10:16)
[2018-07-29] MEDS: JANUVIA PO SCH (10:16)
[2018-07-29] MEDS: ZOSYN 3.375 GM in NS 50 ML IV SCH ×3 (10:17→21:43)
[2018-07-29] MEDS: HUMALOG (PARKWAY) SUBQ SCH ×2 (16:55→21:43)
[2018-07-30] MEDS: ZOSYN 3.375 GM in NS 50 ML IV SCH (04:42)
[2018-07-30] MEDS: HUMALOG (PARKWAY) SUBQ SCH ×4 (06:14→21:51)
[2018-07-30] MEDS: JANUVIA PO SCH (09:03)
[2018-07-30] MEDS: FLOMAX PO SCH (09:03)
[2018-07-30] MEDS: NORVASC PO SCH (09:03)
[2018-07-30] MEDS: CASODEX PO SCH (09:03)
[2018-07-30] MEDS: AVAPRO PO SCH (09:03)
[2018-07-30] MEDS: ZOLOFT PO SCH (09:03)
[2018-07-30] MEDS: COLACE PO SCH ×2 (09:03→21:51)
[2018-07-30] MEDS: TRICOR PO SCH (09:03)
[2018-07-30] MEDS: NEURONTIN PO SCH (09:03)
[2018-07-30] MEDS: PRAVACHOL PO SCH (09:03)
[2018-07-30] MEDS: LEVEMIR INSULIN *HA SUBQ SCH ×2 (09:09→21:51)
[2018-07-31] MEDS: HUMALOG (PARKWAY) SUBQ SCH ×2 (06:08→12:41)
[2018-07-31 07:43] LABS: HEMATOCRIT 34.7 % (42.0-52.0); HEMOGLOBIN 11.6 g/dL (14.0-18.0); MCHC 33.4 g/dL (33-37); MCV 92.8 FL (81-99); RBC 3.74 XMIL (4.7-6.1); RDW 11.9 % (11.5-14.5); WBC 6.75 X1000 (4.8-10.8)
[2018-07-31 07:53] LABS: AGAP 10; ALBUMIN 3.2 g/dL (3.5-5.0); ALKALINE PHOSPHATASE 45 U/L (32-122); BUN 21 mg/dL (8-22); CALCIUM 8.6 mg/dL (8.8-10.2); CHLORIDE 103 mmol/L (98-107); COSMO 283; CREATININE 1.1 mg/dL (0.7-1.2); ESTIMATED GFR > 60; GLUCOSE 240 mg/dL (70-104); GOT 15 U/L (10-34); GPT 14 U/L (10-44); MAGNESIUM 1.8 mg/dL (1.5-2.7); POTASSIUM 4.2 mmol/L (3.5-5.1); SODIUM 136 mmol/L (136-145); TCO2 24 mmol/L (25-35); TOTAL PROTEIN 6.2 g/dL (6.3-8.3)
[2018-07-31 08:14] LABS: HEMOGLOBIN A1C 9.7 % (4.8-6.0)
[2018-07-31] MEDS ORDERED: LEVEMIR INSULIN *HA SUBQ SCH (09:00)
[2018-07-31 10:19] VITALS: BP 132/56
[2018-07-31] MEDS: AVAPRO PO SCH (10:37)
[2018-07-31] MEDS: FLOMAX PO SCH (10:37)
[2018-07-31] MEDS: COLACE PO SCH (10:38)
[2018-07-31] MEDS: NORVASC PO SCH (10:38)
[2018-07-31] MEDS: CASODEX PO SCH (10:38)
[2018-07-31] MEDS: TRICOR PO SCH (10:38)
[2018-07-31] MEDS: JANUVIA PO SCH (10:38)
[2018-07-31] MEDS: NEURONTIN PO SCH (10:38)
[2018-07-31] MEDS: ZOLOFT PO SCH (10:39)
--- NOTE | 2018-07-31 18:25 | PROGRESS NOTE ---
DATE: 07/31/2018 SUBJECTIVE: The patient notes that he is feeling fine. Denies any fevers, chills. Denies any current symptoms, states, however, he has been getting more weak and fatigued at home. OBJECTIVE: Vital Signs: Reviewed. He is afebrile. Blood pressure is stable. Respiratory 20. General: Patient is awake, alert. He is in no current respiratory distress. Pleasant to talk with. HEENT: Normocephalic. Neck: Supple. Cardiovascular: Regular rate. Chest: Clear. Abdomen: Soft. Extremities: Moves all extremities, although generalized weakness. ASSESSMENT: 1. Generalized weakness. 2. Hyperglycemia. 3. Frequent falls. PLAN: We will continue patient in the hospital, continue physical therapy. We will increase his Lantus slightly to 32 units and will follow. Expect that he will need rehab prior to discharge. cc: Ta Brady MD
--- NOTE | 2018-07-31 18:42 | HISTORY AND PHYSICAL ---
DATE: 07/31/2018 CHIEF COMPLAINT: Hyperglycemia. HISTORY OF PRESENT ILLNESS: The patient is a 78-year-old male who presented to the emergency department via assisted living. Assisted Living notes that his blood sugars have been elevated. He has also been complaining of weakness, cough, congestion, fever. States all has been worsening for the past week. He has had increasing weakness and increasing falls. SOCIAL HISTORY: The patient is . He is retired. He lives in assisted living. He does not smoke or drink. ALLERGIES: No known drug allergies. MEDICATIONS: 1. Multivitamin. 2. Norvasc 5. 3. Casodex 50 daily. 4. Colace. 5. Tricor 135 daily. 6. Levemir. 7. Pravachol 20. 8. Sertraline 50. 9. Januvia 50. REVIEW OF SYSTEMS: The patient notes that he has had some fevers, cough, congestion, shortness of breath, frequent falling. He has been more fatigued. Denies any focalized weakness. Denies any chest pain, palpitations. Denies any dysuria, frequency, or urgency. Denies any hesitancy, polyuria, polydipsia. PAST MEDICAL HISTORY: 1. Diabetes. 2. Hypertension. 3. Hyperlipidemia. 4. History of [place]. FAMILY HISTORY: Noncontributory. PHYSICAL EXAMINATION: Vital Signs: Reviewed. His temperature is 100.1 degrees, pulse 83, respiratory rate 18, BP 173/69. General: The patient is awake, alert. He is currently in no respiratory distress. He does have a cough and appears short of breath. He is lying flatly in the bed. HEENT: Normocephalic. Neck: Supple. CARDIOVASCULAR: Regular rate. Chest: Clear of wheezing although does have rhonchi. Does not appear to have any crackles. He does appear short of breath, but equal breath sounds bilaterally. Abdomen: Soft, nondistended. Extremities: Moves all extremities. He has no edema. Neurologic: The patient is awake, alert. He is somewhat confused but this is his baseline. He is a very poor historian. LABORATORY DATA: Glucose 380. WBC 9, hemoglobin and hematocrit 13 and 38. His flu test is negative. Creatinine is 1.5, sodium 130. ASSESSMENT: 1. Volume depletion. The patient's creatinine is slightly higher than normal. 2. Acute on chronic renal failure secondary to volume depletion. 3. Hyponatremia. 4. Diabetes with hyperglycemia. 5. Febrile illness, likely bronchitis. 6. Diabetes with hyperglycemia. 7. Hypertension. 8. High cholesterol. 9. Frequent falls with generalized weakness. PLAN: We will continue the patient in the hospital. Continue IV fluids, antibiotics. We will adjust his insulin and will follow. cc: Ta Brady MD MTD
--- NOTE | 2018-07-31 19:01 | PROGRESS NOTE ---
DATE: 07/30/2018 Patient seen, examined by myself on the . SUBJECTIVE: The patient notes he is feeling okay, he is still tired. Notes he has had several falls at assisted living. PHYSICAL: Vital Signs: Reviewed. Patient is awake, he is in no current distress, is pleasant to talk with. He is currently eating breakfast. He is afebrile. Respiratory 20, pulse stable. HEENT: Normocephalic, atraumatic. Neck: Supple. CV: Regular rate, no murmurs. Chest: Clear, nonlabored. Abdomen: Soft. Extremities: Moves all extremities although generalized weakness. ASSESSMENT: 1. Generalized weakness. 2. Hyperglycemia. Blood sugars are in the 300s. 3. Hypertension. 4. Other. PLAN: Will continue patient in the hospital, will adjust his insulin, will attempt to get out of bed. Hopefully if he is able to ambulate he can discharge home to his assisted living. cc: Ta Brady MD
[2018-07-31] MEDS ORDERED: PRAVACHOL PO SCH (21:00)
--- NOTE | 2018-08-01 18:55 | DISCHARGE SUMMARY ---
ADMISSION DATE: 07/29/2018 DISCHARGE DATE: 07/31/2018 DISCHARGE DIAGNOSES: 1. Nausea. 2. Fever. 3. Failure to thrive. 4. Frequent falls. 5. Diabetes with hyperglycemia. 6. Hypertension. CONSULTATIONS: None. PROCEDURES: None. BRIEF HOSPITAL COURSE: The patient is a 78-year-old male who presented to the ER with fever, weakness, falling, and hyperglycemia. He was admitted, placed on antibiotics. Thankfully, his fever quickly resolved and was likely viral. The antibiotics were stopped, and he did not continue to have fever. Physical Therapy was consulted. The patient continued to have generalized weakness, although not much more significant than his typical home weakness. His blood sugars were elevated, and we did increase his Lantus which brought his blood sugars under better control. DISPOSITION: The patient will be discharged. We will continue the increased dose of Lantus. We discussed rehab versus going back to assisted living. The patient chose assisted living. We will continue to follow his blood sugars. No other changes made on his home medications. cc: Ta Brady MD
== END 2018-07-31 14:15 | disposition home health service (06) | DRG 866 ==
LOC: P.ED 19:16 → P.MEDSURG 07-29 01:46 → SUATTDRO 07-29 01:46
PROVIDERS: ATTEND Family Medicine
CPT/HCPCS: 51702; 71020; 71046; 80053; 81001; 82550; 82948; 83036; 83605; 83735; 84484; 85025; 85027; 85610; 85730; 87040; 87088; 87275; 87276; 87804; 94761; 96361; 96365; 96367; 97162; 99285; A9270; J1815; J2543; J3370; J7030; XXXXX